=== PATIENT | female | born 2005 | race Caucasian/White ===

== ENCOUNTER 2024-04-05 19:37 | Emergency (ER) | payer MEDICAID ==
[~2024-04-05] VITALS: Ht 157.5 cm; Wt 70.3 kg
[2024-04-05 19:45] VITALS: BP_SYST 130; PULSE 85; RESP 18; TEMP 97.5; O2SAT 98
[2024-04-05 21:00] VITALS: BP_SYST 120; PULSE 72; RESP 17; TEMP 97.5; O2SAT 100
== END 2024-04-05 21:00 | disposition home or self-care (01) ==
LOC: SED 19:37
DX: S90.111A Contusion of right great toe without damage to nail, initial encounter (principal); W22.8XXA Striking against or struck by other objects, initial encounter; Y93.89 Activity, other specified; Y92.89 Other specified places as the place of occurrence of the external cause; Y99.8 Other external cause status
CPT/HCPCS: 99283